=== PATIENT | male | born 1955 | race Caucasian/White ===

== ENCOUNTER 2017-08-03 19:13 | Emergency (ER) | payer BC ==
[~2017-08-03] VITALS: Ht 170.2 cm; Wt 108.4 kg
[2017-08-03] MEDS ORDERED: METFORMIN HCL500 M4 PO (20:25)
[2017-08-03] MEDS ORDERED: LISINOPRIL40 MG PO (20:26)
[2017-08-03] MEDS ORDERED: AMLODIPINE BESY10 MG PO (20:26)
[2017-08-03] MEDS ORDERED: MELOXICAM15 MG PO (20:27)
[2017-08-03] MEDS ORDERED: FUROSEMIDE40 MG PO (20:27)
[2017-08-03] MEDS ORDERED: REQUIP3 MG PO (20:28)
[2017-08-03] MEDS ORDERED: FLUOXETINE HCL40 MG PO (20:28)
[2017-08-03] MEDS ORDERED: ALLOPURINOL300 MG PO (20:32)
[2017-08-03] MEDS ORDERED: CATAPRES0.1 MG PO (20:32)
[2017-08-03] MEDS ORDERED: PREDNISONE10 MG PO (20:33)
[2017-08-03] MEDS ORDERED: SIMVASTATIN40 MG PO (20:33)
[2017-08-03] MEDS ORDERED: MORGIDOX100 MG PO (20:33)
[2017-08-03 21:15] VITALS: BP 187/94
== END 2017-08-03 21:17 | disposition home or self-care (01) ==
LOC: EME 19:13
DX: S61.032A Puncture wound without foreign body of left thumb without damage to nail, initial encounter (principal); W45.8XXA Other foreign body or object entering through skin, initial encounter; R22.42 Localized swelling, mass and lump, left lower limb; I10 Essential (primary) hypertension; E11.9 Type 2 diabetes mellitus without complications; E78.5 Hyperlipidemia, unspecified; Z79.84 Long term (current) use of oral hypoglycemic drugs
CPT/HCPCS: 93971; 99281; 99284; S0020

== ENCOUNTER 2017-08-11 04:11 | Emergency (ER) | payer BC ==
[~2017-08-11] VITALS: Ht 170.2 cm; Wt 107.9 kg
[~2017-08-11 04:11] MED LIST: ALLOPURINOL300 MG PO; AMLODIPINE BESY10 MG PO; CATAPRES0.1 MG PO; FLUOXETINE HCL40 MG PO; FUROSEMIDE40 MG PO; LISINOPRIL40 MG PO; MELOXICAM15 MG PO; METFORMIN HCL500 M4 PO; MORGIDOX100 MG PO; PREDNISONE10 MG PO; REQUIP3 MG PO; SIMVASTATIN40 MG PO
[2017-08-11 05:11] VITALS: BP 171/100
== END 2017-08-11 04:59 | disposition home or self-care (01) ==
LOC: EME 04:11
DX: L30.9 Dermatitis, unspecified (principal); E11.9 Type 2 diabetes mellitus without complications; Z79.84 Long term (current) use of oral hypoglycemic drugs; E78.5 Hyperlipidemia, unspecified; I10 Essential (primary) hypertension; Z87.891 Personal history of nicotine dependence
CPT/HCPCS: 99281; 99283